=== PATIENT | male | born 1955 | race Caucasian/White ===

== ENCOUNTER 2020-03-17 21:42 | Emergency (ER) | payer BC ==
[2020-03-17] MEDS ORDERED: HYDROCODONE/ACETAMINOPHEN 5-325 MG TABLET PO ONE (22:52)
[2020-03-17] MEDS ORDERED: DIPH/PERTUSS(ACELL)/TETANUS VAC/PF 0.5 ML SYR (>=10YO) IM ONE (22:52)
--- NOTE | 2020-03-17 22:54 | ER Document Report ---
ED Medical Screen (RME) - General Chief Complaint: Arm Injury Stated Complaint: POSSIBLE STINGRAY BITE Time Seen by Provider: 03/17/20 22:43 Mode of Arrival: Ambulatory Notes: HPI; 65-year-old male presents emergency room with a stingray bite to his left wrist. States he was fishing his cut the stingray he was attempting to get it off her hook when he was bitten on his left lateral wrist. Complaining of worsening pain. That radiates up to his elbow. Unknown last tetanus shot. Patient is right-handed. PE: Alert and oriented x3. Left lateral distal wrist with puncture wound noted. Erythematous. Tender to palpation. No active discharge or draining noted. Positive left radial pulse. Capillary refill less than 3 seconds. Lungs: Clear to auscultation without rales, rhonchi, wheezes.: Regular rate rhythm without murmurs, rubs, gallops. I have greeted and performed a rapid initial assessment of this patient. A comprehensive ED assessment and evaluation of the patient, analysis of test results and completion of the medical decision making process will be conducted by additional ED providers. I have specifically instructed the patient or family members with the patient to immediately return to any nursing staff should anything change in the patient's condition or with their chief complaint. TRAVEL OUTSIDE OF THE [place] IN LAST 30 DAYS: No - Related Data Allergies/Adverse Reactions: No Known Allergies Allergy (Unverified 03/17/20 22:52) Past Medical History - Social History Frequency of alcohol use: None Drug Abuse: None Physical Exam - Vital signs Vitals: Temp Pulse Resp BP Pulse Ox 98.4 F 68 16 199/72 H 95 03/17/20 21:52 03/17/20 21:52 03/17/20 21:52 03/17/20 21:52 03/17/20 21:52 Course - Vital Signs Vital signs: Temp Pulse Resp BP Pulse Ox 98.4 F 68 16 199/72 H 95 03/17/20 21:52 03/17/20 21:52 03/17/20 21:52 03/17/20 21:52 03/17/20 21:52
--- NOTE | 2020-03-17 23:33 | RADIOLOGY REPORT (SQ) ---
EXAM DESCRIPTION: XR WRIST 3 OR MORE VIEWS COMPLETED DATE/TME: 03/17/2020 22:51 CLINICAL HISTORY: 65 years, Male, puncture wound COMPARISON: None. NUMBER OF VIEWS: 3 TECHNIQUE: 3 views left wrist LIMITATIONS: None. FINDINGS: Negative for acute fracture or dislocation. Degenerative changes of the distal radial ulnar joint. Mild soft tissue swelling along the ulnar aspect of the wrist. No soft tissue gas. No radiopaque foreign body IMPRESSION: Soft tissue swelling. No acute osseous abnormality copyright 2010 [employer]- All Rights Reserved
[2020-03-18 02:24] VITALS: BP 134/70
[2020-03-18] MEDS ORDERED: DOXYCYCLINE HYCLATE 100 MG TABLET PO ONE (03:19)
--- NOTE | 2020-03-18 03:20 | ER Document Report ---
ED Wound - General Chief Complaint: Arm Injury Stated Complaint: POSSIBLE STINGRAY BITE Time Seen by Provider: 03/17/20 22:43 Mode of Arrival: Ambulatory Notes: Patient is a 65-year-old male that comes to the emergency department for chief complaint of injury to the left wrist, he states that he was handling a stingray that was caught on a peer while fishing when the stingray ignacio from the tail caught him in the wrist causing the wound with bleeding. He states the area was hurting initially although he did receive hydrocodone in triage earlier and the pain did resolve. He denies any other symptoms or any other complaints. His tetanus is not up-to-date. He is not a diabetic. TRAVEL OUTSIDE OF THE [place] IN LAST 30 DAYS: No - Related Data Allergies/Adverse Reactions: No Known Allergies Allergy (Unverified 03/17/20 22:52) Past Medical History - General Information source: Patient - Social History Smoking Status: Never Smoker Frequency of alcohol use: None Drug Abuse: None Lives with: Family Family History: Reviewed & Not Pertinent Patient has homicidal ideation: No - Immunizations Immunizations up to date: No Hx Diphtheria, Pertussis, Tetanus Vaccination: Yes Review of Systems - Review of Systems Constitutional: No symptoms reported EENT: No symptoms reported Cardiovascular: No symptoms reported Respiratory: No symptoms reported Gastrointestinal: No symptoms reported Genitourinary: No symptoms reported Male Genitourinary: No symptoms reported Musculoskeletal: See HPI Skin: See HPI Hematologic/Lymphatic: No symptoms reported Neurological/Psychological: No symptoms reported Physical Exam - Vital signs Vitals: Temp Pulse Resp BP Pulse Ox 98.4 F 68 16 199/72 H 95 03/17/20 21:52 03/17/20 21:52 03/17/20 21:52 03/17/20 21:52 03/17/20 21:52 - Notes Notes: GENERAL: Alert, interacts well. No acute distress. Talkative and well-appearing HEAD: Normocephalic, atraumatic. EYES: Pupils equal, round, and reactive to light. Extraocular movements intact. ENT: Oral mucosa moist, tongue midline. Oropharynx unremarkable. Airway patent. NECK: Full range of motion. Supple. Trachea midline. No lymphadenopathy. LUNGS: Clear to auscultation bilaterally, no wheezes, rales, or rhonchi. No r espiratory distress. Non-tender chest wall. HEART: Regular rate and rhythm. No murmur ABDOMEN: Soft, non-tender. Non-distended. EXTREMITIES: there is a small puncture wound over the left Lateral wrist over the radial area, there is no significant tenderness, erythema, induration or fluctuance. Radial pulse intact, normal range of motion of the wrist, normal upper extremity exam otherwise including normal distal neurovascular exam. BACK: no cervical, thoracic, lumbar midline tenderness. No saddle anesthesia, normal distal neurovascular exam. Moves all extremities in full range of motion. NEUROLOGICAL: Alert and oriented x3. Normal speech. Cranial nerves II through XII grossly intact. Strength 5/5 in all extremities. PSYCH: Normal affect, normal mood. SKIN: Warm, dry, normal turgor. No rashes or lesions noted. Course - Re-evaluation Re-evalutation: X-ray does show some soft tissue swelling but no foreign body. Exam does not suggest foreign body. Area was cleaned started on prophylactic antibiotics, tetanus updated, discussed care, follow-up, return precautions. Patient states appreciation and agreement. - Vital Signs Vital signs: Temp Pulse Resp BP Pulse Ox 98.5 F 70 16 134/70 H 98 03/18/20 02:23 03/18/20 02:23 03/18/20 02:23 03/18/20 02:23 03/18/20 02:23 Discharge - Discharge Clinical Impression: Contact with stingray as cause of accidental injury Puncture wound of left wrist Qualifiers: Encounter type: initial encounter Qualified Code(s): S61.532A - Puncture wound without foreign body of left wrist, initial encounter Condition: Stable Disposition: HOME, SELF-CARE Additional Instructions: The x-ray does not show a retained ignacio or any concerning findings. Keep the area clean, keep the area dressed with topical antibiotic, take the antibiotic as prescribed to completion. The antibiotic can make you sensitive to sunlight, increasing your risk of sunburn. Use precautions. Follow-up with primary care. Come back if you worsen including developing pain, worsening swelling, spreading redness, fever, or any other concerning symptoms. Prescriptions: Doxycycline Hyclate [Vibramycin 100 mg Tablet] 100 mg PO BID 7 Days #14 tablet
== END 2020-03-18 03:26 | disposition home or self-care (01) ==
LOC: ER 21:42
DX: T63.511A Toxic effect of contact with stingray, accidental (unintentional), initial encounter (principal); S61.532A Puncture wound without foreign body of left wrist, initial encounter; Y92.89 Other specified places as the place of occurrence of the external cause; Y93.19 Activity, other involving water and watercraft; Z23 Encounter for immunization
CPT/HCPCS: 90471; 90715; 99283